=== PATIENT | female | born 1995 | race Caucasian/White ===

== ENCOUNTER 2017-09-22 17:14 | Emergency (ER) | payer SELFPAY ==
[~2017-09-22] VITALS: Ht 170.2 cm; Wt 65.9 kg
[2017-09-22 17:19] VITALS: BP 151/91
== END 2017-09-22 18:36 | disposition left against medical advice (07) ==
LOC: EMS 17:15
DX: F22 Delusional disorders (principal); F17.210 Nicotine dependence, cigarettes, uncomplicated; Z53.21 Procedure and treatment not carried out due to patient leaving prior to being seen by health care provider

== ENCOUNTER 2018-03-18 08:53 | Emergency (ER) | payer OTHER ==
[~2018-03-18] VITALS: Ht 170.2 cm; Wt 68.2 kg
[2018-03-18] MEDS ORDERED: BACITRACIN 0.9 GM PACKET OINTMENT TP ONE (09:15)
[2018-03-18 11:28] VITALS: BP 128/78
== END 2018-03-18 11:29 | disposition home or self-care (01) ==
LOC: EMS 08:53 → EDSEX 08:53 → EMS 11:29
DX: S51.811A Laceration without foreign body of right forearm, initial encounter (principal); S61.204A Unspecified open wound of right ring finger without damage to nail, initial encounter; M79.5 Residual foreign body in soft tissue; F17.210 Nicotine dependence, cigarettes, uncomplicated; F19.10 Other psychoactive substance abuse, uncomplicated; W01.0XXA Fall on same level from slipping, tripping and stumbling without subsequent striking against object, initial encounter; Y93.51 Activity, roller skating (inline) and skateboarding; Y92.89 Other specified places as the place of occurrence of the external cause; Y99.8 Other external cause status
CPT/HCPCS: 99284

== ENCOUNTER 2018-10-28 00:41 | Emergency (ER) | payer SELFPAY ==
[~2018-10-28] VITALS: Ht 170.2 cm; Wt 68.2 kg
[2018-10-28 03:32] LABS: AMPHET/METH SCREEN,URINE NEGATIVE (NEGATIVE); BARBITURATE SCREEN, URINE NEGATIVE (NEGATIVE); BENZODIAZEPINES SCREEN,URINE NEGATIVE (NEGATIVE); CANNABINOID SCREEN,URINE POSITIVE (NEGATIVE); COCAINE SCREEN,URINE NEGATIVE (NEGATIVE); METHADONE SCREEN, URINE NEGATIVE (NEGATIVE); OPIATE SCREEN,URINE NEGATIVE (NEGATIVE)
[2018-10-28 03:52] LABS: PHENCYCLIDINE SCREEN,URINE NEGATIVE (NEGATIVE)
[2018-10-28 04:13] VITALS: BP 116/69
== END 2018-10-28 04:43 | disposition home or self-care (01) ==
LOC: EMS 00:43
DX: F10.129 Alcohol abuse with intoxication, unspecified (principal); F12.90 Cannabis use, unspecified, uncomplicated; F17.210 Nicotine dependence, cigarettes, uncomplicated

== ENCOUNTER 2020-09-14 00:23 | Emergency (ER) | payer SELFPAY ==
[~2020-09-14] VITALS: Ht 170.2 cm; Wt 75.0 kg
[2020-09-14 00:34] VITALS: BP 125/84
== END 2020-09-14 01:01 | disposition left against medical advice (07) ==
LOC: EMS 00:25
DX: Z04.6 Encounter for general psychiatric examination, requested by authority (principal); Z53.21 Procedure and treatment not carried out due to patient leaving prior to being seen by health care provider

== ENCOUNTER 2020-12-02 14:02 | Inpatient (IN) | payer MEDICAID, OTHER ==
[~2020-12-02] VITALS: Ht 170.2 cm; Wt 67.3 kg
[2020-12-02] MEDS ORDERED: DiphenhydrAMINE HCL 50 MG/ML VIAL IM ONE (15:15)
[2020-12-02] MEDS ORDERED: HALOPERIDOL LACTATE 5 MG/ML VIAL IM ONE (15:15)
[2020-12-02] MEDS ORDERED: LORazepam 2 MG/ML VIAL IM ONE (15:15)
[2020-12-02 17:03] LABS: BASOPHILS % (AUTO) 0.5 % (0.0-2.0); EOSINOPHILS % (AUTO) 0.8 % (1.0-6.0); HEMATOCRIT 41.3 % (41-53); HEMOGLOBIN 13.6 g/dL (13.5-17.5); LYMPHOCYTES % (AUTO) 24.7 % (22.0-44.0); MEAN CORPUSCULAR HEMOGLOBIN 29.2 pg (26.0-34.0); MEAN CORPUSCULAR HGB CONC 32.9 G/dL (31.0-37.0); MEAN CORPUSCULAR VOLUME 89 fL (80-100); MONOCYTES # (AUTO) 0.7 K/uL (0.1-1.0); MONOCYTES % (AUTO) 8.4 % (2.0-9.0); NEUTROPHILS # (AUTO) 5.3 K/uL (1.8-7.7); NEUTROPHILS % (AUTO) 65.6 % (40.0-70.0); PLATELET COUNT (AUTO) 302 K/uL (150-450); RED BLOOD CELL COUNT(AUTO) 4.65 MIL/uL (4.50-5.90); RED CELL DISTRIBUTION WIDTH 13.5 % (11.5-14.5)
[2020-12-02 17:15] LABS: ANION GAP 12 mmol/L (8-16); CARBON DIOXIDE 24 mmol/L (22-29); CHLORIDE 107 mmol/L (98-107); CREATININE 1.14 mg/dL (0.60-1.30); GLOMERULAR FILTR. RATE CALC > 60 mL/min (>60); GLUCOSE,RANDOM 106 mg/dL (70-110); POTASSIUM 3.2 mmol/L (3.5-5.1); SODIUM SERUM 143 mmol/L (136-145); UREA NITROGEN, BLOOD 15 mg/dL (7-18)
[2020-12-02 17:20] LABS: ALANINE AMINOTRANSFERASE 33 U/L (12-78); ALBUMIN 3.7 g/dL (3.4-5.0); ALKALINE PHOSPHATASE 116 U/L (46-116); ASPARTATE AMINOTRANSFERASE 40 U/L (15-37); TOTAL PROTEIN, SERUM 7.1 g/dL (6.4-8.2)
[2020-12-02] MEDS ORDERED: HALOPERIDOL 5 MG TABLET PO PRN (18:00)
[2020-12-02] MEDS ORDERED: ZOLPIDEM TARTRATE 10 MG TABLET PO PRN (18:00)
[2020-12-02 23:14] LABS: COVID AG,FIA SOURCE NASOPHARYNGEAL
[2020-12-03 03:46] LABS: CHOL/HDL RATIO 3.1 (4.2-7.3)
[2020-12-03] MEDS: LORazepam 2 MG TABLET PO PRN (08:30)
[2020-12-03 09:23] LABS: APPEARANCE,URINE CLEAR (CLEAR); GLUCOSE, URINE (UA) NEGATIVE (NEGATIVE); KETONES,URINE TRACE mg/dL (NEGATIVE); LEUKOCYTE ESTERASE ,URINE TRACE (NEGATIVE); NITRATE,URINE NEGATIVE (NEGATIVE); OCCULT BLOOD,URINE NEGATIVE (NEGATIVE); PROTEIN,URINE NEGATIVE (NEGATIVE); UROBILINOGEN,URINE 0.2 mg/dL (<=1.0)
[2020-12-03 09:26] LABS: BILIRUBIN,URINE PRELIM. POSITIVE (NEGATIVE)
[2020-12-03 09:30] LABS: AMPHET/METH SCREEN,URINE POSITIVE (NEGATIVE); BARBITURATE SCREEN, URINE NEGATIVE (NEGATIVE); BENZODIAZEPINES SCREEN,URINE NEGATIVE (NEGATIVE); CANNABINOID SCREEN,URINE POSITIVE (NEGATIVE); COCAINE SCREEN,URINE NEGATIVE (NEGATIVE); METHADONE SCREEN, URINE NEGATIVE (NEGATIVE); OPIATE SCREEN,URINE NEGATIVE (NEGATIVE); PHENCYCLIDINE SCREEN,URINE NEGATIVE (NEGATIVE)
[2020-12-03 09:32] VITALS: BP 136/95
[2020-12-03 09:44] LABS: BACTERIA,URINE None Seen /HPF (None Seen); RBC,URINE None Seen /HPF (0-2); SQUAMOUS EPITHELIAL CELL,UR Rare /LPF (None Seen); WBC,URINE 0-2 /HPF (0-5)
[2020-12-03] MEDS: OLANZapine 10 MG TABLET PO SCH ×2 (10:48→17:06)
[2020-12-03] MEDS: FluPHENAZine HCL 5 MG TABLET PO SCH ×2 (10:48→17:06)
[2020-12-04] MEDS ORDERED: IBUPROFEN 400 MG TABLET PO PRN (07:30)
[2020-12-04] MEDS ORDERED: ONDANSETRON HCL 4 MG TABLET PO PRN (07:30)
[2020-12-04] MEDS ORDERED: ALBUTEROL SULFATE HFA 90 MCG/PUFF 8 GM INHALER IH PRN (07:30)
[2020-12-04] MEDS ORDERED: PETROLATUM,WHITE 28 GM JELLY TP PRN (07:30)
[2020-12-04] MEDS ORDERED: ACETAMINOPHEN 325 MG TABLET PO PRN (07:30)
[2020-12-04] MEDS ORDERED: CloNIDine HCL 0.1 MG TABLET PO PRN (07:30)
[2020-12-04] MEDS ORDERED: NICOTINE 14 MG/24 HOUR PATCH TD PRN (07:30)
[2020-12-04] MEDS ORDERED: MAGNESIUM HYDROXIDE SUSPENSION 30 ML UDCUP PO PRN (07:30)
[2020-12-04] MEDS ORDERED: DOCUSATE SODIUM 100 MG CAPSULE PO PRN (07:30)
[2020-12-04] MEDS ORDERED: LOPERAMIDE HCL 2 MG CAPSULE PO PRN (07:30)
[2020-12-04] MEDS ORDERED: GuaiFENesin/D-METHORPHAN [SUGAR-FREE] 200-20MG/10 ML SYRUP UDCUP PO PRN (07:30)
[2020-12-04] MEDS ORDERED: MAG HYDROX/AL HYDROX/SIMETH ES 30 ML SUSPENSION UDCUP PO PRN (07:30)
[2020-12-04 08:00] VITALS: BP 120/70
[2020-12-04] MEDS: OLANZapine 10 MG TABLET PO SCH ×2 (08:51→16:25)
[2020-12-04] MEDS: FluPHENAZine HCL 5 MG TABLET PO SCH ×2 (08:51→16:25)
[2020-12-04 16:01] VITALS: BP 105/61
[2020-12-04] MEDS: LORazepam 2 MG TABLET PO PRN (20:26)
[2020-12-05 08:36] VITALS: BP 112/53
[2020-12-05] MEDS: FluPHENAZine HCL 5 MG TABLET PO SCH ×2 (10:05→16:35)
[2020-12-05] MEDS: OLANZapine 10 MG TABLET PO SCH ×2 (10:05→16:35)
[2020-12-05 17:22] VITALS: BP 114/65
[2020-12-05 20:00] VITALS: BP 128/70
[2020-12-05 21:00] VITALS: BP 131/71
[2020-12-06 08:00] VITALS: BP 117/61
[2020-12-06] MEDS: FluPHENAZine HCL 5 MG TABLET PO SCH ×2 (08:39→16:12)
[2020-12-06] MEDS: OLANZapine 10 MG TABLET PO SCH ×2 (08:40→16:11)
[2020-12-06] MEDS: NICOTINE POLACRILEX 2 MG LOZENGE PO PRN (13:55)
[2020-12-06 16:08] VITALS: BP 117/67
[2020-12-06] MEDS: DIVALPROEX SODIUM 500 MG DR TABLET PO SCH (16:11)
[2020-12-06] MEDS: LORazepam 2 MG TABLET PO PRN (20:36)
[2020-12-07] MEDS: DIVALPROEX SODIUM 500 MG DR TABLET PO SCH (07:48)
[2020-12-07] MEDS: FluPHENAZine HCL 5 MG TABLET PO SCH (07:48)
[2020-12-07] MEDS: OLANZapine 10 MG TABLET PO SCH (07:48)
[2020-12-07 08:00] VITALS: BP 127/78
[2020-12-07 10:30] LABS: COVID AG,FIA SOURCE NASOPHARYNGEAL
[2020-12-07] MEDS ORDERED: DIVA-112 PO (12:13)
[2020-12-07] MEDS ORDERED: FLUP5TAB15 PO (12:14)
[2020-12-07] MEDS ORDERED: OLAN10TA74 PO (12:16)
[2020-12-07] MEDS: NICOTINE POLACRILEX 2 MG LOZENGE PO PRN (13:46)
== END 2020-12-07 14:10 | disposition home or self-care (01) | DRG 750 ==
LOC: EMS 14:02 → 3EC 17:52 → UNDOADMIN 17:52
PROVIDERS: ADMIT Psychiatry & Neurology Child & Adolescent Psychiatry; ATTEND Psychiatry & Neurology Child & Adolescent Psychiatry
DX: F20.9 Schizophrenia, unspecified (principal); K75.9 Inflammatory liver disease, unspecified; Z59.0 Homelessness; E87.6 Hypokalemia; F10.10 Alcohol abuse, uncomplicated; F31.9 Bipolar disorder, unspecified; F94.0 Selective mutism; Z87.891 Personal history of nicotine dependence; Z20.822 Contact with and (suspected) exposure to COVID-19
CPT/HCPCS: 80053; 80061; 80307; 81001; 85025; 99285; A9575; G0480; J1200; J1630; J2060

== ENCOUNTER 2021-05-13 11:19 | Inpatient (IN) | payer MEDICAID, OTHER ==
[~2021-05-13] VITALS: Ht 170.2 cm; Wt 68.7 kg
[~2021-05-13 11:19] MED LIST: DIVA-112 PO; FLUP5TAB15 PO; OLAN10TA74 PO
[2021-05-13 12:16] LABS: BASOPHILS % (AUTO) 0.4 % (0.0-2.0); EOSINOPHILS % (AUTO) 1.4 % (1.0-6.0); HEMATOCRIT 38.1 % (41-53); HEMOGLOBIN 12.6 g/dL (13.5-17.5); LYMPHOCYTES # (AUTO) 1.2 K/uL (1.0-4.8); LYMPHOCYTES % (AUTO) 26.9 % (22.0-44.0); MEAN CORPUSCULAR HEMOGLOBIN 29.3 pg (26.0-34.0); MEAN CORPUSCULAR HGB CONC 33.1 G/dL (31.0-37.0); MEAN CORPUSCULAR VOLUME 89 fL (80-100); MONOCYTES # (AUTO) 0.4 K/uL (0.1-1.0); MONOCYTES % (AUTO) 9.9 % (2.0-9.0); NEUTROPHILS # (AUTO) 2.7 K/uL (1.8-7.7); NEUTROPHILS % (AUTO) 61.4 % (40.0-70.0); PLATELET COUNT (AUTO) 274 K/uL (150-450); RED CELL DISTRIBUTION WIDTH 14.5 % (11.5-14.5)
[2021-05-13 12:26] LABS: ANION GAP 5 mmol/L (8-16); CALCIUM, TOTAL 9.4 mg/dL (8.8-10.5); CARBON DIOXIDE 30 mmol/L (22-29); CHLORIDE 106 mmol/L (98-107); CREATININE 1.09 mg/dL (0.60-1.30); GLOMERULAR FILTR. RATE CALC > 60 mL/min (>60); GLUCOSE,RANDOM 81 mg/dL (70-110); POTASSIUM 4.8 mmol/L (3.5-5.1); SODIUM SERUM 141 mmol/L (136-145); UREA NITROGEN, BLOOD 14 mg/dL (7-18)
[2021-05-13 12:33] LABS: ALANINE AMINOTRANSFERASE 44 U/L (12-78); ALBUMIN 3.7 g/dL (3.4-5.0); ALKALINE PHOSPHATASE 98 U/L (46-116); ASPARTATE AMINOTRANSFERASE 32 U/L (15-37); BILIRUBIN,TOTAL 1.5 mg/dL (0.1-1.0); TOTAL PROTEIN, SERUM 7.3 g/dL (6.4-8.2); VALPROIC ACID < 3 mcg/mL (50-100)
[2021-05-13 12:51] LABS: AMPHET/METH SCREEN,URINE POSITIVE (NEGATIVE); BARBITURATE SCREEN, URINE NEGATIVE (NEGATIVE); BENZODIAZEPINES SCREEN,URINE NEGATIVE (NEGATIVE); CANNABINOID SCREEN,URINE POSITIVE (NEGATIVE); COCAINE SCREEN,URINE NEGATIVE (NEGATIVE); METHADONE SCREEN, URINE NEGATIVE (NEGATIVE); OPIATE SCREEN,URINE NEGATIVE (NEGATIVE)
[2021-05-13 13:01] LABS: PHENCYCLIDINE SCREEN,URINE NEGATIVE (NEGATIVE)
[2021-05-13] MEDS ORDERED: ONDANSETRON HCL 4 MG/2 ML VIAL IVP PRN (14:30)
[2021-05-13] MEDS ORDERED: ACETAMINOPHEN 325 MG TABLET PO PRN (14:30)
[2021-05-13] MEDS ORDERED: 0.9% SODIUM CHLORIDE 10 ML SYRINGE IVP PRN (14:30)
[2021-05-13 15:47] LABS: COVID AG,FIA SOURCE NASOPHARYNGEAL
[2021-05-13] MEDS ORDERED: OLANZapine 5 MG TABLET PO PRN (16:15)
[2021-05-13] MEDS ORDERED: ZOLPIDEM TARTRATE 10 MG TABLET PO PRN (16:15)
[2021-05-13] MEDS ORDERED: INFLUENZA VIRUS VACCINE QVS 2021-22 (6MO+)/PF 60 MCG/0.5 ML SYRINGE IM. ONE (20:30)
[2021-05-13 20:57] VITALS: BP 132/77
[2021-05-14 07:06] LABS: CHOL/HDL RATIO 2.9 (4.2-7.3)
[2021-05-14 08:00] VITALS: BP 121/80
[2021-05-14] MEDS: DIVALPROEX SODIUM 500 MG DR TABLET PO SCH ×2 (11:24→17:49)
[2021-05-14] MEDS: OLANZapine 10 MG TABLET PO SCH ×2 (11:24→17:49)
[2021-05-14] MEDS: FluPHENAZine HCL 5 MG TABLET PO SCH ×2 (11:24→17:49)
[2021-05-14 16:16] VITALS: BP 114/72
[2021-05-15 08:29] VITALS: BP 117/62
[2021-05-15] MEDS: FluPHENAZine HCL 5 MG TABLET PO SCH ×2 (10:47→16:22)
[2021-05-15] MEDS: OLANZapine 10 MG TABLET PO SCH ×2 (10:48→16:22)
[2021-05-15] MEDS: DIVALPROEX SODIUM 500 MG DR TABLET PO SCH ×2 (10:48→16:22)
[2021-05-15 16:00] VITALS: BP 122/60
[2021-05-16] MEDS: OLANZapine 10 MG TABLET PO SCH ×2 (08:33→16:42)
[2021-05-16] MEDS: FluPHENAZine HCL 5 MG TABLET PO SCH ×2 (08:33→16:42)
[2021-05-16] MEDS: DIVALPROEX SODIUM 500 MG DR TABLET PO SCH ×2 (08:34→16:42)
[2021-05-16 11:56] VITALS: BP 127/81
[2021-05-16 16:00] VITALS: BP 111/55
[2021-05-16] MEDS: LORazepam 2 MG TABLET PO PRN (16:42)
[2021-05-17] MEDS: FluPHENAZine HCL 5 MG TABLET PO SCH ×2 (09:20→16:06)
[2021-05-17] MEDS: DIVALPROEX SODIUM 500 MG DR TABLET PO SCH ×2 (09:21→16:06)
[2021-05-17] MEDS: OLANZapine 10 MG TABLET PO SCH ×2 (09:21→17:00)
[2021-05-17 11:06] VITALS: BP 124/74
[2021-05-17 17:06] VITALS: BP 125/56
[2021-05-18 08:00] VITALS: BP 154/85
[2021-05-18] MEDS: FluPHENAZine HCL 5 MG TABLET PO SCH ×2 (10:00→16:32)
[2021-05-18] MEDS: DIVALPROEX SODIUM 500 MG DR TABLET PO SCH ×2 (10:01→16:32)
[2021-05-18] MEDS: OLANZapine 10 MG TABLET PO SCH ×2 (10:01→16:32)
[2021-05-18 16:18] VITALS: BP 128/72
[2021-05-18] MEDS: LORazepam 2 MG TABLET PO PRN (16:33)
[2021-05-19 08:05] VITALS: BP 112/70
[2021-05-19 08:53] LABS: COVID AG,FIA SOURCE NASAL SWAB
[2021-05-19] MEDS: DIVALPROEX SODIUM 500 MG DR TABLET PO SCH ×2 (09:21→16:31)
[2021-05-19] MEDS: OLANZapine 10 MG TABLET PO SCH ×2 (09:21→16:31)
[2021-05-19] MEDS: FluPHENAZine HCL 5 MG TABLET PO SCH ×2 (09:21→16:31)
[2021-05-19 16:14] VITALS: BP 108/84
[2021-05-20] MEDS: FluPHENAZine HCL 5 MG TABLET PO SCH ×2 (07:58→16:25)
[2021-05-20] MEDS: OLANZapine 10 MG TABLET PO SCH ×2 (07:58→16:25)
[2021-05-20] MEDS: DIVALPROEX SODIUM 500 MG DR TABLET PO SCH ×2 (07:58→16:25)
[2021-05-20 08:00] VITALS: BP 127/68
[2021-05-20 16:24] VITALS: BP 130/76
[2021-05-20] MEDS: LORazepam 2 MG TABLET PO PRN (16:25)
[2021-05-21 08:21] VITALS: BP 136/75
[2021-05-21] MEDS: OLANZapine 10 MG TABLET PO SCH (09:09)
[2021-05-21] MEDS: FluPHENAZine HCL 5 MG TABLET PO SCH (09:09)
[2021-05-21] MEDS: DIVALPROEX SODIUM 500 MG DR TABLET PO SCH (09:09)
== END 2021-05-21 11:30 | disposition home or self-care (01) | DRG 750 ==
LOC: EMS 11:19 → 3EC 17:09
PROVIDERS: ADMIT Psychiatry & Neurology Child & Adolescent Psychiatry; ATTEND Psychiatry & Neurology Child & Adolescent Psychiatry
DX: F25.0 Schizoaffective disorder, bipolar type (principal); F22 Delusional disorders; R45.851 Suicidal ideations; F32.A Depression, unspecified; Z20.822 Contact with and (suspected) exposure to COVID-19; F12.10 Cannabis abuse, uncomplicated; D64.9 Anemia, unspecified; F15.10 Other stimulant abuse, uncomplicated; F17.210 Nicotine dependence, cigarettes, uncomplicated; E80.6 Other disorders of bilirubin metabolism; Z59.00 Homelessness unspecified; Z28.21 Immunization not carried out because of patient refusal; Z79.899 Other long term (current) drug therapy
CPT/HCPCS: 80053; 80061; 80164; 85025; 99285; G0480

== ENCOUNTER 2021-06-10 18:23 | Emergency (ER) | payer MEDICAID, OTHER ==
[~2021-06-10] VITALS: Ht 170.2 cm; Wt 68.2 kg
[2021-06-10 19:49] LABS: BASOPHILS % (AUTO) 0.3 % (0.0-2.0); EOSINOPHILS % (AUTO) 0.4 % (1.0-6.0); HEMATOCRIT 40.7 % (41-53); HEMOGLOBIN 13.7 g/dL (13.5-17.5); LYMPHOCYTES # (AUTO) 1.8 K/uL (1.0-4.8); LYMPHOCYTES % (AUTO) 13.7 % (22.0-44.0); MEAN CORPUSCULAR HGB CONC 33.7 G/dL (31.0-37.0); MEAN CORPUSCULAR VOLUME 86 fL (80-100); MONOCYTES # (AUTO) 0.8 K/uL (0.1-1.0); MONOCYTES % (AUTO) 6.1 % (2.0-9.0); NEUTROPHILS # (AUTO) 10.4 K/uL (1.8-7.7); NEUTROPHILS % (AUTO) 79.5 % (40.0-70.0); PLATELET COUNT (AUTO) 301 K/uL (150-450); RED BLOOD CELL COUNT(AUTO) 4.73 MIL/uL (4.50-5.90); RED CELL DISTRIBUTION WIDTH 15.3 % (11.5-14.5)
[2021-06-10 20:06] LABS: ANION GAP 10 mmol/L (8-16); CALCIUM, TOTAL 9.6 mg/dL (8.8-10.5); CARBON DIOXIDE 28 mmol/L (22-29); CHLORIDE 102 mmol/L (98-107); CREATININE 1.09 mg/dL (0.60-1.30); GLOMERULAR FILTR. RATE CALC > 60 mL/min (>60); GLUCOSE,RANDOM 89 mg/dL (70-110); POTASSIUM 3.5 mmol/L (3.5-5.1); SODIUM SERUM 140 mmol/L (136-145); UREA NITROGEN, BLOOD 12 mg/dL (7-18)
[2021-06-10 20:12] LABS: ALANINE AMINOTRANSFERASE 29 U/L (12-78); ALBUMIN 4.3 g/dL (3.4-5.0); ALKALINE PHOSPHATASE 102 U/L (46-116); ASPARTATE AMINOTRANSFERASE 33 U/L (15-37); BILIRUBIN,TOTAL 2.4 mg/dL (0.1-1.0)
[2021-06-10 20:24] VITALS: BP 126/67
[2021-06-10 22:16] LABS: COVID AG,FIA SOURCE NASOPHARYNGEAL
== END 2021-06-11 00:29 | disposition home or self-care (01) ==
LOC: EMS 18:26
DX: F41.9 Anxiety disorder, unspecified (principal); F31.9 Bipolar disorder, unspecified; F20.9 Schizophrenia, unspecified; F17.210 Nicotine dependence, cigarettes, uncomplicated; Z79.899 Other long term (current) drug therapy; Z20.822 Contact with and (suspected) exposure to COVID-19
CPT/HCPCS: 80053; 85025; 87426; 99283; G0480

== ENCOUNTER 2021-07-09 11:44 | Emergency (ER) | payer OTHER ==
[~2021-07-09] VITALS: Ht 170.2 cm; Wt 68.0 kg
[2021-07-09 12:00] VITALS: BP 108/74
== END 2021-07-09 13:37 | disposition left against medical advice (07) ==
LOC: EMS 11:47
DX: R45.851 Suicidal ideations (principal); Z53.21 Procedure and treatment not carried out due to patient leaving prior to being seen by health care provider

== ENCOUNTER 2021-08-06 13:42 | Inpatient (IN) | payer MEDICAID, OTHER ==
[~2021-08-06] VITALS: Ht 170.2 cm; Wt 64.0 kg
[2021-08-06] MEDS ORDERED: ARIP5TAB37 PO (13:46)
[2021-08-06 15:23] LABS: BASOPHILS % (AUTO) 0.5 % (0.0-2.0); EOSINOPHILS % (AUTO) 1.5 % (1.0-6.0); HEMATOCRIT 39.8 % (41-53); HEMOGLOBIN 13.4 g/dL (13.5-17.5); LYMPHOCYTES # (AUTO) 1.9 K/uL (1.0-4.8); LYMPHOCYTES % (AUTO) 32.5 % (22.0-44.0); MEAN CORPUSCULAR HGB CONC 33.8 G/dL (31.0-37.0); MEAN CORPUSCULAR VOLUME 89 fL (80-100); MONOCYTES # (AUTO) 0.5 K/uL (0.1-1.0); MONOCYTES % (AUTO) 8.4 % (2.0-9.0); NEUTROPHILS # (AUTO) 3.3 K/uL (1.8-7.7); NEUTROPHILS % (AUTO) 57.1 % (40.0-70.0); PLATELET COUNT (AUTO) 278 K/uL (150-450); RED BLOOD CELL COUNT(AUTO) 4.48 MIL/uL (4.50-5.90); RED CELL DISTRIBUTION WIDTH 14.4 % (11.5-14.5)
[2021-08-06] MEDS ORDERED: ZOLPIDEM TARTRATE 10 MG TABLET PO PRN (15:30)
[2021-08-06] MEDS ORDERED: OLANZapine 5 MG RAPDIS TABLET PO PRN (15:30)
[2021-08-06 15:36] LABS: ANION GAP 10 mmol/L (8-16); CALCIUM, TOTAL 9.3 mg/dL (8.8-10.5); CARBON DIOXIDE 27 mmol/L (22-29); CHLORIDE 102 mmol/L (98-107); CREATININE 0.98 mg/dL (0.60-1.30); GLOMERULAR FILTR. RATE CALC > 60 mL/min (>60); GLUCOSE,RANDOM 82 mg/dL (70-110); POTASSIUM 3.5 mmol/L (3.5-5.1); SODIUM SERUM 139 mmol/L (136-145); UREA NITROGEN, BLOOD 10 mg/dL (7-18)
[2021-08-06 15:40] LABS: COVID AG,FIA SOURCE NASOPHARYNGEAL
[2021-08-06 15:42] LABS: ALANINE AMINOTRANSFERASE 60 U/L (12-78); ALBUMIN 4.3 g/dL (3.4-5.0); ALKALINE PHOSPHATASE 109 U/L (46-116); ASPARTATE AMINOTRANSFERASE 51 U/L (15-37); BILIRUBIN,TOTAL 1.3 mg/dL (0.1-1.0); TOTAL PROTEIN, SERUM 7.9 g/dL (6.4-8.2)
[2021-08-06 15:43] LABS: VALPROIC ACID < 3 mcg/mL (50-100)
[2021-08-06 16:12] LABS: APPEARANCE,URINE CLEAR (CLEAR); BILIRUBIN,URINE NEGATIVE (NEGATIVE); GLUCOSE, URINE (UA) NEGATIVE (NEGATIVE); KETONES,URINE 40 mg/dL (NEGATIVE); LEUKOCYTE ESTERASE ,URINE NEGATIVE (NEGATIVE); NITRATE,URINE NEGATIVE (NEGATIVE); OCCULT BLOOD,URINE NEGATIVE (NEGATIVE); PROTEIN,URINE NEGATIVE (NEGATIVE)
[2021-08-06 16:14] LABS: AMPHET/METH SCREEN,URINE POSITIVE (NEGATIVE); BARBITURATE SCREEN, URINE NEGATIVE (NEGATIVE); BENZODIAZEPINES SCREEN,URINE NEGATIVE (NEGATIVE); CANNABINOID SCREEN,URINE POSITIVE (NEGATIVE); COCAINE SCREEN,URINE NEGATIVE (NEGATIVE); METHADONE SCREEN, URINE NEGATIVE (NEGATIVE); OPIATE SCREEN,URINE NEGATIVE (NEGATIVE)
[2021-08-06 16:15] LABS: PHENCYCLIDINE SCREEN,URINE NEGATIVE (NEGATIVE)
[2021-08-06 20:10] VITALS: BP 120/74
[2021-08-06] MEDS ORDERED: HydrOXYzine PAMOATE 50 MG CAPSULE PO PRN (20:15)
[2021-08-06] MEDS ORDERED: PROMETHAZINE HCL 25 MG TABLET PO PRN (20:15)
[2021-08-06] MEDS ORDERED: DIVALPROEX SODIUM 500 MG ER TABLET PO ONE (20:15)
[2021-08-06] MEDS ORDERED: MAGNESIUM HYDROXIDE SUSPENSION 30 ML UDCUP PO PRN (20:15)
[2021-08-06] MEDS ORDERED: LOPERAMIDE HCL 2 MG CAPSULE PO PRN (20:15)
[2021-08-06] MEDS ORDERED: ACETAMINOPHEN 325 MG TABLET PO PRN (20:15)
[2021-08-06] MEDS ORDERED: GuaiFENesin/D-METHORPHAN [SUGAR-FREE] 200-20MG/10 ML SYRUP UDCUP PO PRN (20:15)
[2021-08-06] MEDS ORDERED: TUBERCULIN, PURIFIED PROTEIN DERIVATIVE 5 TU/0.1 ML SYRINGE ID ONE (20:15)
[2021-08-06] MEDS ORDERED: MAG HYDROX/AL HYDROX/SIMETH ES 30 ML SUSPENSION UDCUP PO PRN (20:15)
[2021-08-06] MEDS ORDERED: OLANZapine 5 MG RAPDIS TABLET PO ONE (20:15)
[2021-08-06] MEDS: MELATONIN 5 MG TABLET PO SCH (21:11)
[2021-08-07 02:25] VITALS: BP 116/68
[2021-08-07 07:31] LABS: HEMOGLOBIN A1C 5.3 % (3.8-5.6)
[2021-08-07 07:44] LABS: CHOL/HDL RATIO 2.3 (4.2-7.3); FREE T4 (FREE THYROXINE) 1.34 ng/dL (0.76-1.46); THYROID STIMULATING HORMONE 0.34 uIU/mL (0.36-3.74)
[2021-08-07 08:03] VITALS: BP 120/70
[2021-08-07] MEDS: OMEGA-3/DHA/EPA/FISH OIL 1,000 MG CAPSULE PO SCH (08:23)
[2021-08-07] MEDS: THIAMINE 100 MG TABLET PO SCH ×2 (08:23→16:30)
[2021-08-07] MEDS: NALTREXONE HCL 50 MG TABLET PO SCH (08:23)
[2021-08-07] MEDS: LORazepam 2 MG TABLET PO PRN (08:23)
[2021-08-07] MEDS: FLUoxetine HCL 20 MG CAPSULE PO SCH (08:23)
[2021-08-07] MEDS: MULTIVITAMINS WITH MINERALS, THERAPEUTIC TABLET PO SCH (08:24)
[2021-08-07] MEDS: FOLIC ACID 1 MG TABLET PO SCH (08:24)
[2021-08-07] MEDS ORDERED: ARIPiprazole ER SUSPENSION 400 MG PRE-FILLED DUAL CHAMBER SYRINGE IM ONE (14:45)
[2021-08-07 16:05] VITALS: BP 101/68
[2021-08-07] MEDS: DIVALPROEX SODIUM 500 MG ER TABLET PO SCH (20:09)
[2021-08-07] MEDS: ARIPiprazole 15 MG TABLET PO SCH (20:09)
[2021-08-07] MEDS: MELATONIN 5 MG TABLET PO SCH (20:09)
[2021-08-07] MEDS ORDERED: OLANZapine 5 MG RAPDIS TABLET PO SCH (21:00)
[2021-08-08 01:52] VITALS: BP 118/70
[2021-08-08] MEDS: FLUoxetine HCL 20 MG CAPSULE PO SCH (08:35)
[2021-08-08] MEDS: MULTIVITAMINS WITH MINERALS, THERAPEUTIC TABLET PO SCH (08:35)
[2021-08-08] MEDS: THIAMINE 100 MG TABLET PO SCH ×2 (08:35→17:01)
[2021-08-08] MEDS: NALTREXONE HCL 50 MG TABLET PO SCH (08:35)
[2021-08-08] MEDS: OMEGA-3/DHA/EPA/FISH OIL 1,000 MG CAPSULE PO SCH (08:35)
[2021-08-08] MEDS: FOLIC ACID 1 MG TABLET PO SCH (08:35)
[2021-08-08] MEDS: LORazepam 2 MG TABLET PO PRN ×2 (08:35→16:53)
[2021-08-08 09:23] VITALS: BP 114/74
[2021-08-08 16:13] VITALS: BP 111/62
[2021-08-08] MEDS: MELATONIN 5 MG TABLET PO SCH (20:51)
[2021-08-08] MEDS: DIVALPROEX SODIUM 500 MG ER TABLET PO SCH (20:51)
[2021-08-08] MEDS: ARIPiprazole 15 MG TABLET PO SCH (20:51)
[2021-08-09 04:58] VITALS: BP 120/76
[2021-08-09] MEDS: THIAMINE 100 MG TABLET PO SCH ×2 (08:52→16:53)
[2021-08-09] MEDS: OMEGA-3/DHA/EPA/FISH OIL 1,000 MG CAPSULE PO SCH (08:53)
[2021-08-09] MEDS: FOLIC ACID 1 MG TABLET PO SCH (08:53)
[2021-08-09] MEDS: FLUoxetine HCL 20 MG CAPSULE PO SCH (08:53)
[2021-08-09] MEDS: LORazepam 2 MG TABLET PO PRN (08:53)
[2021-08-09] MEDS: NALTREXONE HCL 50 MG TABLET PO SCH (08:53)
[2021-08-09] MEDS: MULTIVITAMINS WITH MINERALS, THERAPEUTIC TABLET PO SCH (08:53)
[2021-08-09 10:01] VITALS: BP 120/72
[2021-08-09 16:07] VITALS: BP 107/63
[2021-08-09] MEDS: DIVALPROEX SODIUM 500 MG ER TABLET PO SCH (20:35)
[2021-08-09] MEDS: MELATONIN 5 MG TABLET PO SCH (20:35)
[2021-08-09] MEDS: ARIPiprazole 10 MG TABLET PO SCH (20:35)
[2021-08-10 04:14] VITALS: BP 118/64
[2021-08-10 08:00] VITALS: BP 110/68
[2021-08-10] MEDS: FLUoxetine HCL 20 MG CAPSULE PO SCH (08:15)
[2021-08-10] MEDS: FOLIC ACID 1 MG TABLET PO SCH (08:15)
[2021-08-10] MEDS: THIAMINE 100 MG TABLET PO SCH ×2 (08:15→16:58)
[2021-08-10] MEDS: MULTIVITAMINS WITH MINERALS, THERAPEUTIC TABLET PO SCH (08:15)
[2021-08-10] MEDS: NALTREXONE HCL 50 MG TABLET PO SCH (08:15)
[2021-08-10] MEDS: LORazepam 2 MG TABLET PO PRN (08:15)
[2021-08-10] MEDS: OMEGA-3/DHA/EPA/FISH OIL 1,000 MG CAPSULE PO SCH (08:15)
[2021-08-10 16:14] VITALS: BP 100/62
[2021-08-10] MEDS: ARIPiprazole 10 MG TABLET PO SCH (21:00)
[2021-08-10] MEDS: DIVALPROEX SODIUM 500 MG ER TABLET PO SCH (21:01)
[2021-08-10] MEDS: MELATONIN 5 MG TABLET PO SCH (21:01)
[2021-08-11 00:20] VITALS: BP 105/64
[2021-08-11 08:29] VITALS: BP 135/79
[2021-08-11] MEDS: THIAMINE 100 MG TABLET PO SCH ×2 (09:10→16:34)
[2021-08-11] MEDS: FLUoxetine HCL 20 MG CAPSULE PO SCH (09:10)
[2021-08-11] MEDS: OMEGA-3/DHA/EPA/FISH OIL 1,000 MG CAPSULE PO SCH (09:10)
[2021-08-11] MEDS: FOLIC ACID 1 MG TABLET PO SCH (09:10)
[2021-08-11] MEDS: MULTIVITAMINS WITH MINERALS, THERAPEUTIC TABLET PO SCH (09:10)
[2021-08-11] MEDS: NALTREXONE HCL 50 MG TABLET PO SCH (09:10)
[2021-08-11 16:10] VITALS: BP 108/68
[2021-08-11] MEDS: ARIPiprazole 10 MG TABLET PO SCH (20:28)
[2021-08-11] MEDS: DIVALPROEX SODIUM 500 MG ER TABLET PO SCH (20:29)
[2021-08-11] MEDS: MELATONIN 5 MG TABLET PO SCH (20:34)
[2021-08-12 03:26] VITALS: BP 114/73
[2021-08-12 08:31] VITALS: BP 110/65
[2021-08-12] MEDS: OMEGA-3/DHA/EPA/FISH OIL 1,000 MG CAPSULE PO SCH (08:39)
[2021-08-12] MEDS: THIAMINE 100 MG TABLET PO SCH ×2 (08:39→16:18)
[2021-08-12] MEDS: MULTIVITAMINS WITH MINERALS, THERAPEUTIC TABLET PO SCH (08:39)
[2021-08-12] MEDS: FOLIC ACID 1 MG TABLET PO SCH (08:39)
[2021-08-12] MEDS: NALTREXONE HCL 50 MG TABLET PO SCH (08:39)
[2021-08-12] MEDS: FLUoxetine HCL 20 MG CAPSULE PO SCH (08:39)
[2021-08-12 16:19] VITALS: BP 117/72
[2021-08-12] MEDS: MELATONIN 5 MG TABLET PO SCH (20:07)
[2021-08-12] MEDS: DIVALPROEX SODIUM 500 MG ER TABLET PO SCH (20:07)
[2021-08-12] MEDS: ARIPiprazole 10 MG TABLET PO SCH (20:08)
[2021-08-13 05:37] VITALS: BP_SYST 116
[2021-08-13 08:26] VITALS: BP 120/68
[2021-08-13] MEDS: THIAMINE 100 MG TABLET PO SCH (08:33)
[2021-08-13] MEDS: OMEGA-3/DHA/EPA/FISH OIL 1,000 MG CAPSULE PO SCH (08:33)
[2021-08-13] MEDS: MULTIVITAMINS WITH MINERALS, THERAPEUTIC TABLET PO SCH (08:33)
[2021-08-13] MEDS: NALTREXONE HCL 50 MG TABLET PO SCH (08:33)
[2021-08-13] MEDS: FLUoxetine HCL 20 MG CAPSULE PO SCH (08:33)
[2021-08-13] MEDS: FOLIC ACID 1 MG TABLET PO SCH (08:34)
[2021-08-13] MEDS ORDERED: PROZ20 PO (14:45)
[2021-08-13] MEDS ORDERED: ARIP400S3 IM (14:45)
[2021-08-13] MEDS ORDERED: OMEG-108 PO (14:45)
[2021-08-13] MEDS ORDERED: MELA5TAB40 PO (14:45)
[2021-08-13] MEDS ORDERED: ARIP10TA38 PO (14:45)
[2021-08-13] MEDS ORDERED: DIVA-80 PO (14:45)
[2021-08-13] MEDS ORDERED: NALT50TA PO (14:45)
[2021-09-04] MEDS ORDERED: ARIPiprazole ER SUSPENSION 400 MG PRE-FILLED DUAL CHAMBER SYRINGE IM SCH (09:00)
== END 2021-08-13 16:30 | disposition home or self-care (01) | DRG 750 ==
LOC: EMS 13:42 → B3A 16:44
PROVIDERS: ADMIT Psychiatry & Neurology Psychiatry; ATTEND Psychiatry & Neurology Psychiatry
DX: F25.1 Schizoaffective disorder, depressive type (principal); R45.851 Suicidal ideations; F22 Delusional disorders; F60.0 Paranoid personality disorder; F41.0 Panic disorder [episodic paroxysmal anxiety]; F31.9 Bipolar disorder, unspecified; F12.90 Cannabis use, unspecified, uncomplicated; F17.210 Nicotine dependence, cigarettes, uncomplicated; Z20.822 Contact with and (suspected) exposure to COVID-19; F06.30 Mood disorder due to known physiological condition, unspecified; Z72.89 Other problems related to lifestyle; Z91.14 Patient's other noncompliance with medication regimen; Z91.19 Patient's noncompliance with other medical treatment and regimen; Z55.9 Problems related to education and literacy, unspecified; Z59.9 Problem related to housing and economic circumstances, unspecified; Z63.9 Problem related to primary support group, unspecified; Z65.3 Problems related to other legal circumstances
CPT/HCPCS: 80053; 80061; 80164; 81003; 83036; 84439; 84443; 85025; 86592; 99285; G0480; J0401; Q9967

== ENCOUNTER 2021-08-31 01:09 | Inpatient (IN) | payer MEDICAID, OTHER ==
[~2021-08-31] VITALS: Ht 170.2 cm; Wt 65.1 kg
[~2021-08-31 01:09] MED LIST changes: +ARIP10TA38 PO; +ARIP400S3 IM; -DIVA-112 PO; +DIVA-80 PO; -FLUP5TAB15 PO; +MELA5TAB40 PO; +NALT50TA PO; -OLAN10TA74 PO; +OMEG-108 PO; +PROZ20 PO
[2021-08-31 01:47] LABS: BASOPHILS % (AUTO) 0.6 % (0.0-2.0); EOSINOPHILS % (AUTO) 2.3 % (1.0-6.0); HEMATOCRIT 37.6 % (41-53); HEMOGLOBIN 12.7 g/dL (13.5-17.5); LYMPHOCYTES # (AUTO) 1.9 K/uL (1.0-4.8); LYMPHOCYTES % (AUTO) 28.4 % (22.0-44.0); MEAN CORPUSCULAR HEMOGLOBIN 29.7 pg (26.0-34.0); MEAN CORPUSCULAR HGB CONC 33.7 G/dL (31.0-37.0); MEAN CORPUSCULAR VOLUME 88 fL (80-100); MONOCYTES # (AUTO) 0.5 K/uL (0.1-1.0); MONOCYTES % (AUTO) 7.2 % (2.0-9.0); NEUTROPHILS # (AUTO) 4.2 K/uL (1.8-7.7); NEUTROPHILS % (AUTO) 61.5 % (40.0-70.0); PLATELET COUNT (AUTO) 249 K/uL (150-450); RED BLOOD CELL COUNT(AUTO) 4.26 MIL/uL (4.50-5.90); RED CELL DISTRIBUTION WIDTH 14.4 % (11.5-14.5)
[2021-08-31 01:55] LABS: ANION GAP 14 mmol/L (8-16); CARBON DIOXIDE 25 mmol/L (22-29); CHLORIDE 99 mmol/L (98-107); CREATININE 0.98 mg/dL (0.60-1.30); GLOMERULAR FILTR. RATE CALC > 60 mL/min (>60); GLUCOSE,RANDOM 107 mg/dL (70-110); POTASSIUM 3.7 mmol/L (3.5-5.1); SODIUM SERUM 138 mmol/L (136-145); UREA NITROGEN, BLOOD 19 mg/dL (7-18)
[2021-08-31] MEDS ORDERED: OLANZapine 5 MG TABLET PO ONE (02:00)
[2021-08-31 02:01] LABS: ALANINE AMINOTRANSFERASE 87 U/L (12-78); ALBUMIN 3.9 g/dL (3.4-5.0); ALKALINE PHOSPHATASE 93 U/L (46-116); ASPARTATE AMINOTRANSFERASE 53 U/L (15-37); BILIRUBIN,TOTAL 1.1 mg/dL (0.1-1.0); TOTAL PROTEIN, SERUM 7.5 g/dL (6.4-8.2); VALPROIC ACID 3 mcg/mL (50-100)
[2021-08-31] MEDS ORDERED: ZOLPIDEM TARTRATE 10 MG TABLET PO PRN (02:15)
[2021-08-31] MEDS: LORazepam 2 MG TABLET PO PRN (02:29)
[2021-08-31 02:30] LABS: COVID AG,FIA SOURCE NASOPHARYNGEAL
[2021-08-31 05:15] VITALS: BP 114/75
[2021-08-31 08:37] VITALS: BP 93/57
[2021-08-31] MEDS ORDERED: GuaiFENesin/D-METHORPHAN [SUGAR-FREE] 200-20MG/10 ML SYRUP UDCUP PO PRN (13:45)
[2021-08-31] MEDS ORDERED: PROMETHAZINE HCL 25 MG TABLET PO PRN (13:45)
[2021-08-31] MEDS ORDERED: MAG HYDROX/AL HYDROX/SIMETH ES 30 ML SUSPENSION UDCUP PO PRN (13:45)
[2021-08-31] MEDS ORDERED: MAGNESIUM HYDROXIDE SUSPENSION 30 ML UDCUP PO PRN (13:45)
[2021-08-31] MEDS ORDERED: ACETAMINOPHEN 325 MG TABLET PO PRN (13:45)
[2021-08-31] MEDS ORDERED: LOPERAMIDE HCL 2 MG CAPSULE PO PRN (13:45)
[2021-08-31] MEDS ORDERED: HydrOXYzine PAMOATE 50 MG CAPSULE PO PRN (13:45)
[2021-08-31 16:37] VITALS: BP 115/72
[2021-08-31] MEDS: THIAMINE 100 MG TABLET PO SCH (16:37)
[2021-08-31] MEDS: DIVALPROEX SODIUM 500 MG ER TABLET PO SCH (20:10)
[2021-08-31] MEDS: ARIPiprazole 15 MG TABLET PO SCH (20:10)
[2021-08-31] MEDS: MELATONIN 5 MG TABLET PO SCH (20:11)
[2021-08-31] MEDS ORDERED: MELATONIN 5 MG TABLET PO SCH (21:00)
[2021-09-01 05:22] VITALS: BP 110/67
[2021-09-01] MEDS: MULTIVITAMINS WITH MINERALS, THERAPEUTIC TABLET PO SCH (08:36)
[2021-09-01] MEDS: THIAMINE 100 MG TABLET PO SCH ×2 (08:36→16:47)
[2021-09-01] MEDS: FLUoxetine HCL 20 MG CAPSULE PO SCH (08:37)
[2021-09-01] MEDS: NALTREXONE HCL 50 MG TABLET PO SCH (08:37)
[2021-09-01] MEDS: FOLIC ACID 1 MG TABLET PO SCH (08:37)
[2021-09-01] MEDS: OMEGA-3/DHA/EPA/FISH OIL 1,000 MG CAPSULE PO SCH (08:37)
[2021-09-01] MEDS ORDERED: NALTREXONE HCL 50 MG TABLET PO SCH (09:00)
[2021-09-01] MEDS ORDERED: OMEGA-3/DHA/EPA/FISH OIL 1,000 MG CAPSULE PO SCH (09:00)
[2021-09-01] MEDS ORDERED: ARIPiprazole ER SUSPENSION 400 MG PRE-FILLED DUAL CHAMBER SYRINGE IM ONE (09:00)
[2021-09-01 10:02] VITALS: BP 102/58
[2021-09-01 16:09] VITALS: BP 129/74
[2021-09-01] MEDS: OLANZapine 5 MG RAPDIS TABLET PO PRN (16:47)
[2021-09-01] MEDS: LORazepam 2 MG TABLET PO PRN (16:47)
[2021-09-01] MEDS: MELATONIN 5 MG TABLET PO SCH (20:16)
[2021-09-01] MEDS: DIVALPROEX SODIUM 500 MG ER TABLET PO SCH (20:16)
[2021-09-01] MEDS: ARIPiprazole 15 MG TABLET PO SCH (20:16)
[2021-09-02 00:37] VITALS: BP 130/70
[2021-09-02 08:14] VITALS: BP 112/60
[2021-09-02] MEDS: FOLIC ACID 1 MG TABLET PO SCH (08:32)
[2021-09-02] MEDS: OMEGA-3/DHA/EPA/FISH OIL 1,000 MG CAPSULE PO SCH (08:32)
[2021-09-02] MEDS: NALTREXONE HCL 50 MG TABLET PO SCH (08:32)
[2021-09-02] MEDS: LORazepam 2 MG TABLET PO PRN (08:32)
[2021-09-02] MEDS: THIAMINE 100 MG TABLET PO SCH ×2 (08:32→17:19)
[2021-09-02] MEDS: MULTIVITAMINS WITH MINERALS, THERAPEUTIC TABLET PO SCH (08:32)
[2021-09-02] MEDS: OLANZapine 5 MG RAPDIS TABLET PO PRN (08:32)
[2021-09-02] MEDS: FLUoxetine HCL 20 MG CAPSULE PO SCH (08:32)
[2021-09-02 16:11] VITALS: BP 110/60
[2021-09-02] MEDS: ARIPiprazole 15 MG TABLET PO SCH (20:40)
[2021-09-02] MEDS: MELATONIN 5 MG TABLET PO SCH (20:40)
[2021-09-02] MEDS: DIVALPROEX SODIUM 500 MG ER TABLET PO SCH (20:40)
[2021-09-03 00:24] VITALS: BP 116/66
[2021-09-03] MEDS: FOLIC ACID 1 MG TABLET PO SCH (08:31)
[2021-09-03] MEDS: OMEGA-3/DHA/EPA/FISH OIL 1,000 MG CAPSULE PO SCH (08:31)
[2021-09-03] MEDS: THIAMINE 100 MG TABLET PO SCH ×2 (08:31→16:59)
[2021-09-03] MEDS: MULTIVITAMINS WITH MINERALS, THERAPEUTIC TABLET PO SCH (08:31)
[2021-09-03] MEDS: FLUoxetine HCL 20 MG CAPSULE PO SCH (08:32)
[2021-09-03] MEDS: NALTREXONE HCL 50 MG TABLET PO SCH (08:32)
[2021-09-03 09:21] VITALS: BP 124/78
[2021-09-03] MEDS ORDERED: NALT50TA PO (15:27)
[2021-09-03] MEDS ORDERED: ARIP400S3 IM (15:27)
[2021-09-03] MEDS ORDERED: MELA5TAB40 PO (15:27)
[2021-09-03] MEDS ORDERED: PROZ20 PO (15:27)
[2021-09-03] MEDS ORDERED: DIVA-80 PO (15:27)
[2021-09-03] MEDS ORDERED: ARIP15TA27 PO (15:27)
[2021-09-03 16:10] VITALS: BP 107/62
[2021-09-29] MEDS ORDERED: ARIPiprazole ER SUSPENSION 400 MG PRE-FILLED DUAL CHAMBER SYRINGE IM SCH (09:00)
== END 2021-09-03 17:56 | disposition home or self-care (01) | DRG 750 ==
LOC: EMS 01:11 → B3A 03:40
PROVIDERS: ADMIT Psychiatry & Neurology Psychiatry; ATTEND Psychiatry & Neurology Psychiatry
DX: F25.0 Schizoaffective disorder, bipolar type (principal); Z91.14 Patient's other noncompliance with medication regimen; F10.20 Alcohol dependence, uncomplicated; F11.90 Opioid use, unspecified, uncomplicated; F41.0 Panic disorder [episodic paroxysmal anxiety]; Z20.822 Contact with and (suspected) exposure to COVID-19; F17.210 Nicotine dependence, cigarettes, uncomplicated; F25.1 Schizoaffective disorder, depressive type; F12.20 Cannabis dependence, uncomplicated; Y90.9 Presence of alcohol in blood, level not specified; F32.9 Major depressive disorder, single episode, unspecified; Z55.9 Problems related to education and literacy, unspecified; Z59.9 Problem related to housing and economic circumstances, unspecified; Z63.9 Problem related to primary support group, unspecified; Z65.3 Problems related to other legal circumstances
CPT/HCPCS: 80053; 80164; 85025; 87081; 99285; G0480; J0401; Q9967

== ENCOUNTER 2021-09-26 21:49 | Emergency (ER) | payer MEDICAID, OTHER ==
[~2021-09-26] VITALS: Ht 213.4 cm; Wt 68.0 kg
[~2021-09-26 21:49] MED LIST changes: -ARIP10TA38 PO; +ARIP15TA27 PO; -OMEG-108 PO
[2021-09-26 21:53] VITALS: BP 130/93
[2021-09-26 22:40] LABS: BASOPHILS % (AUTO) 0.6 % (0.0-2.0); HEMOGLOBIN 13.1 g/dL (13.5-17.5); LYMPHOCYTES # (AUTO) 2.3 K/uL (1.0-4.8); LYMPHOCYTES % (AUTO) 42.3 % (22.0-44.0); MEAN CORPUSCULAR HEMOGLOBIN 29.7 pg (26.0-34.0); MEAN CORPUSCULAR HGB CONC 33.6 G/dL (31.0-37.0); MEAN CORPUSCULAR VOLUME 88 fL (80-100); MONOCYTES # (AUTO) 0.4 K/uL (0.1-1.0); MONOCYTES % (AUTO) 7.3 % (2.0-9.0); NEUTROPHILS # (AUTO) 2.7 K/uL (1.8-7.7); NEUTROPHILS % (AUTO) 48.8 % (40.0-70.0); PLATELET COUNT (AUTO) 323 K/uL (150-450); RED BLOOD CELL COUNT(AUTO) 4.41 MIL/uL (4.50-5.90)
[2021-09-26 22:46] LABS: ANION GAP 4 mmol/L (8-16); CALCIUM, TOTAL 9.2 mg/dL (8.8-10.5); CARBON DIOXIDE 30 mmol/L (22-29); CHLORIDE 102 mmol/L (98-107); CREATININE 1.04 mg/dL (0.60-1.30); GLOMERULAR FILTR. RATE CALC > 60 mL/min (>60); GLUCOSE,RANDOM 94 mg/dL (70-110); SODIUM SERUM 136 mmol/L (136-145); UREA NITROGEN, BLOOD 8 mg/dL (7-18)
[2021-09-26 22:53] LABS: ALANINE AMINOTRANSFERASE 51 U/L (12-78); ALBUMIN 4.1 g/dL (3.4-5.0); ALKALINE PHOSPHATASE 101 U/L (46-116); ASPARTATE AMINOTRANSFERASE 38 U/L (15-37); BILIRUBIN,TOTAL 1.3 mg/dL (0.1-1.0); TOTAL PROTEIN, SERUM 7.5 g/dL (6.4-8.2); VALPROIC ACID < 3 mcg/mL (50-100)
== END 2021-09-27 00:32 | disposition left against medical advice (07) ==
LOC: EMS 21:51
DX: F41.9 Anxiety disorder, unspecified (principal); Z53.21 Procedure and treatment not carried out due to patient leaving prior to being seen by health care provider
CPT/HCPCS: 36415; 80053; 80164; 85025; G0480

== ENCOUNTER 2021-10-07 04:37 | Emergency (ER) | payer OTHER | END 2021-10-07 05:38 | disposition left against medical advice (07) | LOC: EMS 04:40 | DX: F41.9 Anxiety disorder, unspecified (principal); Z53.21 Procedure and treatment not carried out due to patient leaving prior to being seen by health care provider ==

== ENCOUNTER 2021-11-06 08:56 | Inpatient (IN) | payer MEDICAID, OTHER ==
[~2021-11-06] VITALS: Ht 170.2 cm; Wt 69.9 kg
[2021-11-06] MEDS ORDERED: HALO2 PO (09:21)
[2021-11-06 09:23] LABS: BASOPHILS % (AUTO) 0.5 % (0.0-2.0); HEMATOCRIT 39.4 % (41-53); HEMOGLOBIN 13.1 g/dL (13.5-17.5); LYMPHOCYTES # (AUTO) 1.8 K/uL (1.0-4.8); LYMPHOCYTES % (AUTO) 23.4 % (22.0-44.0); MEAN CORPUSCULAR HEMOGLOBIN 29.7 pg (26.0-34.0); MEAN CORPUSCULAR HGB CONC 33.4 G/dL (31.0-37.0); MEAN CORPUSCULAR VOLUME 89 fL (80-100); MONOCYTES # (AUTO) 0.6 K/uL (0.1-1.0); MONOCYTES % (AUTO) 8.3 % (2.0-9.0); NEUTROPHILS % (AUTO) 66.8 % (40.0-70.0); PLATELET COUNT (AUTO) 287 K/uL (150-450); RED BLOOD CELL COUNT(AUTO) 4.43 MIL/uL (4.50-5.90); RED CELL DISTRIBUTION WIDTH 15.1 % (11.5-14.5)
[2021-11-06 09:42] LABS: ANION GAP 12 mmol/L (8-16); CALCIUM, TOTAL 9.1 mg/dL (8.8-10.5); CARBON DIOXIDE 27 mmol/L (22-29); CHLORIDE 100 mmol/L (98-107); CREATININE 0.79 mg/dL (0.60-1.30); GLOMERULAR FILTR. RATE CALC > 60 mL/min (>60); GLUCOSE,RANDOM 90 mg/dL (70-110); POTASSIUM 3.7 mmol/L (3.5-5.1); SODIUM SERUM 139 mmol/L (136-145); UREA NITROGEN, BLOOD 9 mg/dL (7-18)
[2021-11-06 09:44] LABS: ALANINE AMINOTRANSFERASE 41 U/L (12-78); ALBUMIN 4.3 g/dL (3.4-5.0); ALKALINE PHOSPHATASE 89 U/L (46-116); ASPARTATE AMINOTRANSFERASE 35 U/L (15-37); BILIRUBIN,TOTAL 0.6 mg/dL (0.1-1.0); VALPROIC ACID 3 mcg/mL (50-100)
[2021-11-06 10:15] LABS: AMPHET/METH SCREEN,URINE POSITIVE (NEGATIVE); BARBITURATE SCREEN, URINE NEGATIVE (NEGATIVE); BENZODIAZEPINES SCREEN,URINE NEGATIVE (NEGATIVE); CANNABINOID SCREEN,URINE NEGATIVE (NEGATIVE); COCAINE SCREEN,URINE NEGATIVE (NEGATIVE); METHADONE SCREEN, URINE NEGATIVE (NEGATIVE); OPIATE SCREEN,URINE NEGATIVE (NEGATIVE); PHENCYCLIDINE SCREEN,URINE NEGATIVE (NEGATIVE)
[2021-11-06 10:29] LABS: COVID AG,FIA SOURCE NASOPHARYNGEAL
[2021-11-06] MEDS ORDERED: ZOLPIDEM TARTRATE 10 MG TABLET PO PRN (13:45)
[2021-11-06] MEDS: HALOPERIDOL 5 MG TABLET PO PRN (17:44)
[2021-11-06] MEDS: LORazepam 2 MG TABLET PO PRN (17:45)
[2021-11-07] MEDS ORDERED: IBUPROFEN 400 MG TABLET PO PRN (06:30)
[2021-11-07] MEDS ORDERED: NICOTINE 14 MG/24 HOUR PATCH TD PRN (06:30)
[2021-11-07] MEDS ORDERED: PETROLATUM,WHITE 28 GM JELLY TP PRN (06:30)
[2021-11-07] MEDS ORDERED: DOCUSATE SODIUM 100 MG CAPSULE PO PRN (06:30)
[2021-11-07] MEDS ORDERED: ONDANSETRON HCL 4 MG TABLET PO PRN (06:30)
[2021-11-07] MEDS ORDERED: CloNIDine HCL 0.1 MG TABLET PO PRN (06:30)
[2021-11-07] MEDS ORDERED: GuaiFENesin/D-METHORPHAN [SUGAR-FREE] 200-20MG/10 ML SYRUP UDCUP PO PRN (06:30)
[2021-11-07] MEDS ORDERED: ACETAMINOPHEN 325 MG TABLET PO PRN (06:30)
[2021-11-07] MEDS ORDERED: LOPERAMIDE HCL 2 MG CAPSULE PO PRN (06:30)
[2021-11-07] MEDS ORDERED: ALBUTEROL SULFATE HFA 90 MCG/PUFF 8 GM INHALER IH PRN (06:30)
[2021-11-07] MEDS ORDERED: MAG HYDROX/AL HYDROX/SIMETH ES 30 ML SUSPENSION UDCUP PO PRN (06:30)
[2021-11-07] MEDS ORDERED: MAGNESIUM HYDROXIDE SUSPENSION 30 ML UDCUP PO PRN (06:30)
[2021-11-07 08:09] VITALS: BP 102/60
[2021-11-07 09:12] VITALS: BP 102/60
[2021-11-07] MEDS: NALTREXONE HCL 50 MG TABLET PO SCH (13:29)
[2021-11-07] MEDS: FLUoxetine HCL 20 MG CAPSULE PO SCH (13:29)
[2021-11-07 16:05] VITALS: BP 101/63
[2021-11-07] MEDS: ARIPiprazole 15 MG TABLET PO SCH (20:17)
[2021-11-07] MEDS: LORazepam 2 MG TABLET PO PRN (20:17)
[2021-11-07] MEDS: DIVALPROEX SODIUM 500 MG DR TABLET PO SCH (20:17)
[2021-11-07] MEDS: MELATONIN 5 MG TABLET PO SCH (20:17)
[2021-11-07] MEDS ORDERED: MELATONIN 5 MG TABLET PO SCH (21:00)
[2021-11-08 04:02] VITALS: BP 99/61
[2021-11-08] MEDS: NALTREXONE HCL 50 MG TABLET PO SCH (08:12)
[2021-11-08] MEDS: FLUoxetine HCL 20 MG CAPSULE PO SCH (08:12)
[2021-11-08] MEDS: LORazepam 2 MG TABLET PO PRN ×2 (08:12→20:17)
[2021-11-08 08:19] VITALS: BP 111/60
[2021-11-08 16:00] VITALS: BP 106/64
[2021-11-08] MEDS: DIVALPROEX SODIUM 500 MG DR TABLET PO SCH (20:16)
[2021-11-08] MEDS: ARIPiprazole 15 MG TABLET PO SCH (20:16)
[2021-11-08] MEDS: MELATONIN 5 MG TABLET PO SCH (20:17)
[2021-11-09 05:38] VITALS: BP 104/60
[2021-11-09 08:07] VITALS: BP 106/64
[2021-11-09] MEDS: NALTREXONE HCL 50 MG TABLET PO SCH (08:12)
[2021-11-09] MEDS: FLUoxetine HCL 20 MG CAPSULE PO SCH (08:12)
[2021-11-09 16:06] VITALS: BP 128/67
[2021-11-09] MEDS: ARIPiprazole 15 MG TABLET PO SCH (20:31)
[2021-11-09] MEDS: MELATONIN 5 MG TABLET PO SCH (20:31)
[2021-11-09] MEDS: DIVALPROEX SODIUM 500 MG DR TABLET PO SCH (20:31)
[2021-11-10 05:00] VITALS: BP 116/49
[2021-11-10 08:08] VITALS: BP 109/62
[2021-11-10] MEDS: FLUoxetine HCL 20 MG CAPSULE PO SCH (08:08)
[2021-11-10] MEDS: LORazepam 2 MG TABLET PO PRN ×2 (08:08→17:14)
[2021-11-10] MEDS: HALOPERIDOL 5 MG TABLET PO PRN (08:08)
[2021-11-10] MEDS: NALTREXONE HCL 50 MG TABLET PO SCH (08:08)
[2021-11-10 16:06] VITALS: BP 105/61
[2021-11-10] MEDS: ARIPiprazole 15 MG TABLET PO SCH (20:09)
[2021-11-10] MEDS: DIVALPROEX SODIUM 500 MG DR TABLET PO SCH (20:10)
[2021-11-10] MEDS: MELATONIN 5 MG TABLET PO SCH (20:10)
[2021-11-11 04:55] VITALS: BP 106/61
[2021-11-11] MEDS: NALTREXONE HCL 50 MG TABLET PO SCH (08:24)
[2021-11-11] MEDS: FLUoxetine HCL 20 MG CAPSULE PO SCH (08:24)
[2021-11-11] MEDS: LORazepam 2 MG TABLET PO PRN ×2 (08:24→16:18)
[2021-11-11 08:31] VITALS: BP 105/66
[2021-11-11 16:26] VITALS: BP 113/61
[2021-11-11] MEDS: MELATONIN 5 MG TABLET PO SCH (20:03)
[2021-11-11] MEDS: ARIPiprazole 15 MG TABLET PO SCH (20:04)
[2021-11-11] MEDS: DIVALPROEX SODIUM 500 MG DR TABLET PO SCH (20:04)
[2021-11-12 04:50] VITALS: BP 106/60
[2021-11-12 08:23] VITALS: BP 107/81
[2021-11-12] MEDS: NALTREXONE HCL 50 MG TABLET PO SCH (08:56)
[2021-11-12] MEDS: FLUoxetine HCL 20 MG CAPSULE PO SCH (08:56)
[2021-11-12] MEDS ORDERED: FLUO20CA36 PO (10:48)
[2021-11-12] MEDS ORDERED: DIVA-112 PO (11:25)
== END 2021-11-12 12:45 | disposition home or self-care (01) | DRG 750 ==
LOC: EMS 08:56 → B3A 13:56
PROVIDERS: ADMIT Psychiatry & Neurology Child & Adolescent Psychiatry; ATTEND Psychiatry & Neurology Child & Adolescent Psychiatry
DX: F20.0 Paranoid schizophrenia (principal); R45.851 Suicidal ideations; D64.9 Anemia, unspecified; F10.10 Alcohol abuse, uncomplicated; F15.10 Other stimulant abuse, uncomplicated; F41.9 Anxiety disorder, unspecified; Z20.822 Contact with and (suspected) exposure to COVID-19; F11.10 Opioid abuse, uncomplicated; F12.10 Cannabis abuse, uncomplicated; G47.00 Insomnia, unspecified; Y90.9 Presence of alcohol in blood, level not specified
CPT/HCPCS: 80053; 80164; 85025; 99285; G0480; Q9967

== ENCOUNTER 2022-11-22 21:15 | Emergency (ER) | payer MEDICAID, OTHER ==
[~2022-11-22 21:15] MED LIST changes: -ARIP400S3 IM; +DIVA-112 PO; -DIVA-80 PO; +FLUO20CA36 PO; -PROZ20 PO
== END 2022-11-22 23:08 | disposition left against medical advice (07) ==
LOC: EMS 21:16
DX: F41.9 Anxiety disorder, unspecified (principal); F22 Delusional disorders; Z53.21 Procedure and treatment not carried out due to patient leaving prior to being seen by health care provider
CPT/HCPCS: 99281; Z7502

== ENCOUNTER 2022-12-05 08:49 | Emergency (ER) | payer OTHER ==
[~2022-12-05] VITALS: Ht 170.2 cm; Wt 86.4 kg
[2022-12-05 08:52] VITALS: TEMP 98.8
[2022-12-05] MEDS ORDERED: ARIP882S2 IM (08:52)
[2022-12-05] MEDS ORDERED: NALT380S2 IM (08:52)
[2022-12-05] MEDS ORDERED: AMOX TR/POT CLAV 875 MG/125 MG TABLET PO ONE (09:00)
[2022-12-05] MEDS ORDERED: DEXAMETHASONE SOD PHOS 4 MG/ML VIAL IM ONE (09:00)
[2022-12-05] MEDS ORDERED: ACETAMINOPHEN 500 MG TABLET PO ONE (09:00)
[2022-12-05 09:02] LABS: COVID AG,FIA SOURCE NASOPHARYNGEAL
[2022-12-05] MEDS ORDERED: AMOX1TAB16 PO (09:05)
[2022-12-05] MEDS ORDERED: IBUP-1492 PO (09:05)
[2022-12-05] MEDS ORDERED: ACET-3385 PO (09:05)
[2022-12-05 09:15] LABS: RAPID GROUP A STREP POSITIVE (NEGATIVE)
[2022-12-05 09:23] LABS: INFLUENZA TYPE A NEGATIVE FOR TYPE A (NEGATIVE); INFLUENZA TYPE B NEGATIVE FOR TYPE B (NEGATIVE)
[2022-12-05 09:36] VITALS: BP 121/69; PULSE 82; RESP 16
== END 2022-12-05 09:52 | disposition home or self-care (01) ==
LOC: EMS 08:53
DX: J03.90 Acute tonsillitis, unspecified (principal); F31.9 Bipolar disorder, unspecified; F20.9 Schizophrenia, unspecified; F17.210 Nicotine dependence, cigarettes, uncomplicated; F12.90 Cannabis use, unspecified, uncomplicated; F11.90 Opioid use, unspecified, uncomplicated; Z20.822 Contact with and (suspected) exposure to COVID-19
CPT/HCPCS: 99283; 87426; 87430; 87804; 96372; J1100

== ENCOUNTER 2023-07-15 10:25 | Inpatient (IN) | payer MEDICAID, OTHER ==
[~2023-07-15] VITALS: Ht 170.2 cm; Wt 73.6 kg
[~2023-07-15 10:25] MED LIST changes: +ACET-3385 PO; -ARIP15TA27 PO; +ARIP882S2 IM; +BUPR-49 PO; -DIVA-112 PO; -FLUO20CA36 PO; +IBUP-1492 PO; -MELA5TAB40 PO; +NALT380S2 IM; -NALT50TA PO
[2023-07-15 11:40] LABS: BASOPHILS % (AUTO) 0.4 % (0.0-2.0); EOSINOPHILS % (AUTO) 0.1 % (1.0-6.0); HEMATOCRIT 41.7 % (41-53); HEMOGLOBIN 13.7 g/dL (13.5-17.5); LYMPHOCYTES # (AUTO) 1.7 K/uL (1.0-4.8); LYMPHOCYTES % (AUTO) 14.4 % (22.0-44.0); MEAN CORPUSCULAR HEMOGLOBIN 29.4 pg (26.0-34.0); MEAN CORPUSCULAR HGB CONC 32.9 G/dL (31.0-37.0); MEAN CORPUSCULAR VOLUME 90 fL (80-100); MONOCYTES # (AUTO) 0.8 K/uL (0.1-1.0); MONOCYTES % (AUTO) 6.7 % (2.0-9.0); NEUTROPHILS # (AUTO) 9.1 K/uL (1.8-7.7); NEUTROPHILS % (AUTO) 78.4 % (40.0-70.0); PLATELET COUNT (AUTO) 314 K/uL (150-450); RED BLOOD CELL COUNT(AUTO) 4.66 MIL/uL (4.50-5.90); RED CELL DISTRIBUTION WIDTH 14.1 % (11.5-14.5); WHITE BLOOD COUNT (AUTO) 11.6 K/uL (4.5-11.0)
[2023-07-15 11:49] LABS: ANION GAP 11 mmol/L (8-16); CALCIUM, TOTAL 9.6 mg/dL (8.8-10.5); CARBON DIOXIDE 26 mmol/L (22-29); CHLORIDE 103 mmol/L (98-107); CREATININE 1.02 mg/dL (0.60-1.30); GLOMERULAR FILTR. RATE CALC > 60 mL/min (>60); GLUCOSE,RANDOM 102 mg/dL (70-110); POTASSIUM 3.2 mmol/L (3.5-5.1); SODIUM SERUM 140 mmol/L (136-145); UREA NITROGEN, BLOOD 10 mg/dL (7-18)
[2023-07-15 11:53] LABS: ALANINE AMINOTRANSFERASE 38 U/L (12-78); ALBUMIN 4.6 g/dL (3.4-5.0); ALKALINE PHOSPHATASE 109 U/L (46-116); ASPARTATE AMINOTRANSFERASE 56 U/L (15-37); BILIRUBIN,TOTAL 0.6 mg/dL (0.1-1.0); TOTAL PROTEIN, SERUM 7.8 g/dL (6.4-8.2)
[2023-07-15 11:57] LABS: ALCOHOL, BLOOD (SERUM) < 3 mg/dL (0-10)
[2023-07-15 15:01] LABS: COVID AG,FIA SOURCE NASAL SWAB
[2023-07-15 15:23] LABS: SARS-COV2 (COVID) ANTIGEN,FIA Negative (Negative)
[2023-07-15] MEDS ORDERED: HALOPERIDOL 5 MG TABLET PO ONE (15:45)
[2023-07-15] MEDS ORDERED: LORazepam 1 MG TABLET PO ONE (15:45)
[2023-07-15] MEDS ORDERED: DiphenhydrAMINE HCL 50 MG/ML VIAL ONE (15:46)
[2023-07-15] MEDS ORDERED: HALOPERIDOL LACTATE 5 MG/ML VIAL ONE (15:46)
[2023-07-15] MEDS ORDERED: LORazepam 2 MG/ML VIAL ONE (15:46)
[2023-07-15] MEDS ORDERED: LORazepam 2 MG/ML VIAL IM ONE (16:00)
[2023-07-15] MEDS ORDERED: HALOPERIDOL LACTATE 5 MG/ML VIAL IM ONE (16:00)
[2023-07-15] MEDS ORDERED: DiphenhydrAMINE HCL 50 MG/ML VIAL IM ONE (16:00)
[2023-07-15] MEDS ORDERED: ZOLPIDEM TARTRATE 10 MG TABLET PO PRN (17:15)
[2023-07-15 18:37] VITALS: BP 147/94; PULSE 88; RESP 18; TEMP 98.2
[2023-07-15] MEDS ORDERED: NICOTINE POLACRILEX 2 MG LOZENGE PO PRN (19:00)
[2023-07-15] MEDS ORDERED: INFLUENZA VIRUS VACCINE QVS 2023-24 (6MO+)/PF 60 MCG/0.5 ML SYRINGE IM. ONE (19:30)
[2023-07-15] MEDS ORDERED: PNEUMOCOCCAL VACCINE POLYVALENT 0.5 ML SYRINGE [PPSV23] IM. ONE (19:30)
[2023-07-15 20:29] VITALS: RESP 18
[2023-07-15] MEDS ORDERED: POTASSIUM CHLORIDE 20 MEQ ER TABLET PO ONE (22:15)
[2023-07-15] MEDS: LORazepam 2 MG TABLET PO PRN (23:11)
[2023-07-16] MEDS: HALOPERIDOL 5 MG TABLET PO PRN ×2 (01:34→20:16)
[2023-07-16 08:30] VITALS: BP 109/72; PULSE 82; RESP 18; TEMP 98.1
[2023-07-16] MEDS: ARIPiprazole 15 MG TABLET PO SCH (10:37)
[2023-07-16] MEDS: BuPROPion HCL XL 150 MG ER TABLET PO SCH (10:37)
[2023-07-16] MEDS ORDERED: NICOTINE 14 MG/24 HOUR PATCH TD PRN (14:45)
[2023-07-16] MEDS ORDERED: ONDANSETRON HCL 4 MG TABLET PO PRN (14:45)
[2023-07-16] MEDS ORDERED: MAG HYDROX/ALUMINUM HYD/SIMETH ES 30 ML SUSPENSION UDCUP PO PRN (14:45)
[2023-07-16] MEDS ORDERED: PETROLATUM,WHITE 28 GM JELLY TP PRN (14:45)
[2023-07-16] MEDS ORDERED: ALBUTEROL SULFATE HFA 90 MCG/PUFF 8 GM INHALER IH PRN (14:45)
[2023-07-16] MEDS ORDERED: GuaiFENesin/D-METHORPHAN [SUGAR-FREE] 200-20MG/10 ML SYRUP UDCUP PO PRN (14:45)
[2023-07-16] MEDS ORDERED: ACETAMINOPHEN 325 MG TABLET PO PRN (14:45)
[2023-07-16] MEDS ORDERED: IBUPROFEN 400 MG TABLET PO PRN (14:45)
[2023-07-16] MEDS ORDERED: DOCUSATE SODIUM 100 MG CAPSULE PO PRN (14:45)
[2023-07-16] MEDS ORDERED: LOPERAMIDE HCL 2 MG CAPSULE PO PRN (14:45)
[2023-07-16] MEDS ORDERED: CloNIDine HCL 0.1 MG TABLET PO PRN (14:45)
[2023-07-16] MEDS ORDERED: MAGNESIUM HYDROXIDE SUSPENSION 30 ML UDCUP PO PRN (14:45)
[2023-07-16] MEDS: LORazepam 2 MG TABLET PO PRN (20:16)
[2023-07-16 21:36] VITALS: RESP 18
[2023-07-17] MEDS: ARIPiprazole 15 MG TABLET PO SCH (08:43)
[2023-07-17] MEDS: BuPROPion HCL XL 150 MG ER TABLET PO SCH (08:43)
[2023-07-17 09:14] VITALS: BP 110/60; PULSE 67; RESP 18; TEMP 97.8
[2023-07-17 20:06] VITALS: BP 113/65; PULSE 97; RESP 18; TEMP 98.1
[2023-07-18 09:00] VITALS: BP 109/63; PULSE 71; RESP 17; TEMP 97.8
[2023-07-18 09:06] LABS: HEMOGLOBIN A1C 5.1 % (3.8-5.6)
[2023-07-18 09:25] LABS: CHOL/HDL RATIO 3.3 (4.2-7.3); THYROID STIMULATING HORMONE 0.37 uIU/mL (0.36-3.74)
[2023-07-18] MEDS: ARIPiprazole 15 MG TABLET PO SCH (11:20)
[2023-07-18] MEDS: BuPROPion HCL XL 150 MG ER TABLET PO SCH (11:20)
[2023-07-18 22:32] VITALS: RESP 18
[2023-07-19] MEDS: ARIPiprazole 15 MG TABLET PO SCH (08:24)
[2023-07-19] MEDS: BuPROPion HCL XL 150 MG ER TABLET PO SCH (08:24)
[2023-07-19 09:51] VITALS: BP 117/84; PULSE 70; RESP 18; TEMP 97.5
[2023-07-19 20:48] VITALS: BP 120/70; PULSE 81; RESP 19; TEMP 97.9
[2023-07-19 21:31] VITALS: BP 129/81; PULSE 85; RESP 20; TEMP 97.2
[2023-07-19 22:41] VITALS: BP 118/72; PULSE 79; RESP 18; TEMP 97.5
[2023-07-20 08:13] VITALS: BP 107/68; PULSE 80; RESP 16; TEMP 97
[2023-07-20] MEDS: BuPROPion HCL XL 150 MG ER TABLET PO SCH (10:20)
[2023-07-20] MEDS: ARIPiprazole 15 MG TABLET PO SCH (10:20)
[2023-07-20] MEDS ORDERED: ARIP15TA27 PO ×2 (13:00→13:45)
[2023-07-20] MEDS ORDERED: BUPR-50 PO (13:01)
[2023-07-20] MEDS ORDERED: BUPR-49 PO (13:45)
== END 2023-07-20 17:01 | disposition left against medical advice (07) | DRG 750 ==
LOC: EMS 10:25 → 3EC 17:21
PROVIDERS: ADMIT Psychiatry & Neurology Child & Adolescent Psychiatry; ATTEND Psychiatry & Neurology Child & Adolescent Psychiatry
PROC: GZHZZZZ Group Psychotherapy (ICD-10-PCS; principal; 2023-07-18)
DX: F20.0 Paranoid schizophrenia (principal); R45.851 Suicidal ideations; F15.10 Other stimulant abuse, uncomplicated; F31.9 Bipolar disorder, unspecified; E87.6 Hypokalemia; D64.9 Anemia, unspecified; Z53.21 Procedure and treatment not carried out due to patient leaving prior to being seen by health care provider; Z20.822 Contact with and (suspected) exposure to COVID-19; R03.0 Elevated blood-pressure reading, without diagnosis of hypertension; Z87.891 Personal history of nicotine dependence; Z79.899 Other long term (current) drug therapy
CPT/HCPCS: 80053; 80061; 83036; 84132; 84443; 85025; 99285; G0480; J1200; J1630; J2060; Q9967

== ENCOUNTER 2024-01-16 09:01 | Emergency (ER) | payer MEDICAID, OTHER ==
[~2024-01-16] VITALS: Ht 170.2 cm; Wt 83.2 kg
[~2024-01-16 09:01] MED LIST changes: -ACET-3385 PO; +ARIP15TA27 PO; -ARIP882S2 IM; +BUPR-514 PO; -IBUP-1492 PO; -NALT380S2 IM
[2024-01-16 09:06] VITALS: BP 155/87; PULSE 100; RESP 16; TEMP 98.1
[2024-01-16] MEDS ORDERED: RISP0.5T80 PO (09:09)
[2024-01-16] MEDS ORDERED: NALT380S2 IM (09:09)
[2024-01-16] MEDS ORDERED: ARIP882S2 IM (09:09)
[2024-01-16 09:14] LABS: COVID AG,FIA SOURCE NASAL SWAB
[2024-01-16 09:31] LABS: BASOPHILS % (AUTO) 0.9 % (0.0-2.0); EOSINOPHILS % (AUTO) 0.4 % (1.0-6.0); HEMATOCRIT 40.6 % (41-53); HEMOGLOBIN 13.2 g/dL (13.5-17.5); LYMPHOCYTES # (AUTO) 1.9 K/uL (1.0-4.8); LYMPHOCYTES % (AUTO) 22.2 % (22.0-44.0); MEAN CORPUSCULAR HEMOGLOBIN 29.3 pg (26.0-34.0); MEAN CORPUSCULAR HGB CONC 32.6 G/dL (31.0-37.0); MEAN CORPUSCULAR VOLUME 90 fL (80-100); MONOCYTES # (AUTO) 0.7 K/uL (0.1-1.0); MONOCYTES % (AUTO) 8.3 % (2.0-9.0); NEUTROPHILS # (AUTO) 5.8 K/uL (1.8-7.7); NEUTROPHILS % (AUTO) 68.2 % (40.0-70.0); PLATELET COUNT (AUTO) 300 K/uL (150-450); RED BLOOD CELL COUNT(AUTO) 4.51 MIL/uL (4.50-5.90); RED CELL DISTRIBUTION WIDTH 13.7 % (11.5-14.5); WHITE BLOOD COUNT (AUTO) 8.5 K/uL (4.5-11.0)
[2024-01-16 09:40] LABS: SARS-COV2 (COVID) ANTIGEN,FIA Negative (Negative)
[2024-01-16 09:40] LABS: ANION GAP 11 mmol/L (8-16); CALCIUM, TOTAL 8.6 mg/dL (8.8-10.5); CARBON DIOXIDE 24 mmol/L (22-29); CHLORIDE 100 mmol/L (98-107); GLOMERULAR FILTR. RATE CALC > 60 mL/min (>60); GLUCOSE,RANDOM 103 mg/dL (70-110); POTASSIUM 3.6 mmol/L (3.5-5.1); SODIUM SERUM 135 mmol/L (136-145); UREA NITROGEN, BLOOD 7 mg/dL (7-18)
[2024-01-16 09:44] LABS: ALCOHOL, BLOOD (SERUM) < 3 mg/dL (0-10)
== END 2024-01-16 10:24 | disposition home or self-care (01) ==
LOC: EMS 09:01 → CANBEDREQ 10:17 → EMS 10:24
DX: F20.9 Schizophrenia, unspecified (principal); F31.9 Bipolar disorder, unspecified; F17.210 Nicotine dependence, cigarettes, uncomplicated; F12.90 Cannabis use, unspecified, uncomplicated; Z20.822 Contact with and (suspected) exposure to COVID-19
CPT/HCPCS: 99283; 87426; 80048; 85025; 36415; G0480

== ENCOUNTER 2024-01-29 12:31 | Emergency (ER) | payer OTHER ==
[~2024-01-29 12:31] MED LIST changes: -ARIP15TA27 PO; +ARIP882S2 IM; -BUPR-49 PO; +NALT380S2 IM; +RISP0.5T80 PO
== END 2024-01-29 14:10 | disposition left against medical advice (07) ==
LOC: EMS 12:31
DX: Z53.21 Procedure and treatment not carried out due to patient leaving prior to being seen by health care provider (principal)

== ENCOUNTER 2025-03-08 05:22 | Emergency (ER) | payer MEDICAID, OTHER ==
[~2025-03-08 05:22] MED LIST changes: +ARIP10642 IM; -ARIP882S2 IM; +BUPR-49 PO; -BUPR-514 PO; +MELA5TAB40 PO; -NALT380S2 IM; +NALT50TA33 PO; +OLAN10TA26 PO; -RISP0.5T80 PO
== END 2025-03-08 05:25 | disposition left against medical advice (07) ==
LOC: EMS 05:23
DX: R45.851 Suicidal ideations (principal); Z53.21 Procedure and treatment not carried out due to patient leaving prior to being seen by health care provider

== ENCOUNTER 2025-03-29 16:26 | Emergency (ER) | payer OTHER ==
[~2025-03-29] VITALS: Ht 170.2 cm; Wt 90.9 kg
[2025-03-29 16:37] VITALS: BP 149/93; PULSE 116; RESP 18; TEMP 98.2; O2SAT 99
[2025-03-29 17:19] LABS: PLATELET COUNT (AUTO) 324 K/uL (150-450); RED BLOOD CELL COUNT(AUTO) 4.64 MIL/uL (4.50-5.90); RED CELL DISTRIBUTION WIDTH 14.6 % (11.5-14.5); WHITE BLOOD COUNT (AUTO) 10.1 K/uL (4.5-11.0)
[2025-03-29 17:31] LABS: CALCIUM, TOTAL 8.8 mg/dL (8.8-10.5); CREATININE 0.90 mg/dL (0.60-1.30); GLOMERULAR FILTR. RATE CALC > 60 mL/min (>60); GLUCOSE,RANDOM 103 mg/dL (70-110); SODIUM SERUM 141 mmol/L (136-145); UREA NITROGEN, BLOOD 11 mg/dL (7-18)
[2025-03-29 17:42] LABS: COVID AG,FIA SOURCE NASAL SWAB
[2025-03-29 17:59] LABS: SARS-COV2 (COVID) ANTIGEN,FIA Negative (Negative)
== END 2025-03-29 18:54 | disposition home or self-care (01) ==
LOC: EMS 16:26
DX: R45.851 Suicidal ideations (principal); F25.0 Schizoaffective disorder, bipolar type; F11.90 Opioid use, unspecified, uncomplicated; F12.90 Cannabis use, unspecified, uncomplicated; F17.210 Nicotine dependence, cigarettes, uncomplicated; F41.9 Anxiety disorder, unspecified; F31.9 Bipolar disorder, unspecified; Z79.899 Other long term (current) drug therapy; Z20.822 Contact with and (suspected) exposure to COVID-19
CPT/HCPCS: 99285; 87426; 80048; 85025; 36415; G0480

== ENCOUNTER 2025-04-14 04:08 | Inpatient (IN) | payer MEDICAID, OTHER ==
[~2025-04-14] VITALS: Ht 170.2 cm; Wt 72.6 kg
[2025-04-14] MEDS ORDERED: ZOLPIDEM TARTRATE 10 MG TABLET PO PRN (05:00)
[2025-04-14 05:32] LABS: COVID AG,FIA SOURCE NASAL SWAB
[2025-04-14 05:58] LABS: SARS-COV2 (COVID) ANTIGEN,FIA Negative (Negative)
[2025-04-14 06:08] LABS: APPEARANCE,URINE TURBID (CLEAR); GLUCOSE, URINE (UA) TRACE mg/dL (NEGATIVE); LEUKOCYTE ESTERASE ,URINE NEGATIVE (NEGATIVE); NITRATE,URINE NEGATIVE (NEGATIVE); OCCULT BLOOD,URINE NEGATIVE (NEGATIVE); PH,URINE DRUG SCREEN 5.5 (5.0-8.0); SPECIFIC GRAVITIY, URINE 1.037 (1.003-1.030)
[2025-04-14 06:15] LABS: ALCOHOL, URINE DRUG SCREEN NEGATIVE (NEGATIVE); AMPHET/METH SCREEN,URINE POSITIVE (NEGATIVE); BARBITURATE SCREEN, URINE NEGATIVE (NEGATIVE); CANNABINOID SCREEN,URINE POSITIVE (NEGATIVE); COCAINE SCREEN,URINE NEGATIVE (NEGATIVE); METHADONE SCREEN, URINE NEGATIVE (NEGATIVE)
[2025-04-14 08:54] VITALS: BP 149/87; PULSE 98; TEMP 98.1; O2SAT 99
[2025-04-14] MEDS ORDERED: INFLUENZA VIRUS VACCINE TVS (6MO+) 2025-26/PF 45 MCG/0.5 ML SYRINGE IM. ONE (13:30)
[2025-04-14] MEDS ORDERED: BACITRACIN 28 GM OINTMENT TP PRN (14:30)
[2025-04-14] MEDS ORDERED: LOPERAMIDE HCL 2 MG CAPSULE PO PRN (14:30)
[2025-04-14] MEDS ORDERED: MAG HYDROX/ALUMINUM HYD/SIMETH ES 30 ML SUSPENSION UDCUP PO PRN (14:30)
[2025-04-14] MEDS ORDERED: IBUPROFEN 600 MG TABLET PO PRN (14:30)
[2025-04-14] MEDS ORDERED: PETROLATUM,WHITE 28 GM JELLY TP PRN (14:30)
[2025-04-14] MEDS ORDERED: OMEPRAZOLE 20 MG CAPSULE PO PRN (14:30)
[2025-04-14] MEDS ORDERED: DOCUSATE SODIUM 100 MG CAPSULE PO PRN (14:30)
[2025-04-14] MEDS ORDERED: ONDANSETRON 4 MG TABLET PO PRN (14:30)
[2025-04-14] MEDS ORDERED: ALBUTEROL SULFATE HFA 90 MCG/PUFF 8 GM INHALER IH PRN (14:30)
[2025-04-14] MEDS ORDERED: BENZOCAINE/MENTHOL [CEPACOL] LOZENGE PO PRN (14:30)
[2025-04-14] MEDS ORDERED: MAGNESIUM HYDROXIDE SUSPENSION 30 ML UDCUP PO PRN (14:30)
[2025-04-14] MEDS ORDERED: ACETAMINOPHEN 325 MG TABLET PO PRN (14:30)
[2025-04-14] MEDS: BuPROPion HCL XL 150 MG ER TABLET PO SCH (17:11)
[2025-04-15 08:12] VITALS: RESP 18
[2025-04-16 08:22] VITALS: RESP 18
[2025-04-16 20:16] VITALS: RESP 17
[2025-04-17 08:08] VITALS: RESP 17
[2025-04-17 20:39] VITALS: RESP 16
[2025-04-18 08:22] VITALS: RESP 18
[2025-04-18] MEDS ORDERED: BUPR-50 PO (15:42)
[2025-04-18] MEDS ORDERED: BUSP5TAB20 PO (15:44)
[2025-04-18] MEDS ORDERED: OLAN10TA74 PO (15:44)
== END 2025-04-18 19:06 | disposition home or self-care (01) | DRG 750 ==
LOC: EMS 04:10 → B3A 10:50
PROVIDERS: ADMIT Psychiatry & Neurology Psychiatry; ATTEND Psychiatry & Neurology Psychiatry
DX: F20.9 Schizophrenia, unspecified (principal); R45.851 Suicidal ideations; G40.909 Epilepsy, unspecified, not intractable, without status epilepticus; F12.90 Cannabis use, unspecified, uncomplicated; F15.10 Other stimulant abuse, uncomplicated; K21.9 Gastro-esophageal reflux disease without esophagitis; F17.200 Nicotine dependence, unspecified, uncomplicated; F41.9 Anxiety disorder, unspecified; G47.00 Insomnia, unspecified; I10 Essential (primary) hypertension; Z20.822 Contact with and (suspected) exposure to COVID-19; F31.9 Bipolar disorder, unspecified; Z71.6 Tobacco abuse counseling; Z79.899 Other long term (current) drug therapy
CPT/HCPCS: 80307; 81003; 90686; 99285